=== PATIENT | female | born 1995 | race Caucasian/White ===

== ENCOUNTER 2020-06-03 09:18 | Emergency (ER) | payer OTHER, SELFPAY ==
[2020-06-03 09:44] VITALS: BP 110/61; PULSE 94; RESP 17; TEMP 36.3; O2SAT 99
--- NOTE | 2020-06-03 09:52 | ED.FEMALEGU ---
HPI - Female Genitourinary General Chief complaint: Urogenital-Female Stated complaint: possible uti Time Seen by Provider: 06/03/20 09:52 Source: patient Mode of arrival: ambulatory Limitations: no limitations History of Present Illness HPI Narrative: Joanna Laurent is a 24 yo female with no PMH who comes to the [facility] care for complaints of urinary tract symptoms as well as concerned about an STD over unprotected sex in the recent few months. He had a different partner 4 months ago and contracted chlamydia but was treated. She has not been to a primary care physician as her doctor has retired. She is here for both her potential UTI and for possible STD exposure Related Data Home Medications Medication Instructions Recorded Confirmed amitriptyline 50 mg PO HS 06/03/20 06/03/20 aripiprazole [Abilify] 20 mg PO DAILY 06/03/20 06/03/20 hydroxyzine pamoate [Vistaril] 50 mg PO BID 06/03/20 06/03/20 lamotrigine [Lamictal] 150 mg PO DAILY 06/03/20 06/03/20 levonorgestrel [Mirena] 1 device INTRAUTERINE ONCE 06/03/20 06/03/20 sumatriptan succinate [Imitrex 4 mg SUBCUT ONCE 06/03/20 06/03/20 STATdose Pen] venlafaxine [Effexor XR] 75 mg PO TID 06/03/20 06/03/20 Allergies Allergy/AdvReac Type Severity Reaction Status Date / Time codeine Allergy Hives Verified 06/03/20 09:59 Review of Systems Review of Systems: Narrative: CONSTITUTIONAL: Denies fever, chills, sweats. EYES: Denies visual changes, redness, discharge. ENT: Denies rhinorrhea, congestion, sore throat, otalgia. CARDIOVASCULAR: Denies chest pain, palpitations, edema. RESPIRATORY: Denies dyspnea, wheezing, cough GASTROINTESTINAL: Denies abdominal pain, nausea, vomiting, diarrhea. GENITOURINARY:has dysuria, hematuria, abnormal discharge- concerned about STD SKIN: Denies rash or itching. NEUROLOGIC: Denies numbness, or focal weakness. PSYCHIATRIC: Denies anxiety or depression. PMFSH Past Medical History Medical History Chlamydia Family History Family History Other Hypertension Social History Social History (Updated 06/03/20 @ 10:15 by Erum Cowan CNP) Smoking status: Current every day smoker Tobacco type: e-cigarettes/vaping Alcohol intake: current Gender identity (if verbalized by the patient): Female Comments At time of signature, I agree with nursing past medical, surgical, social and family history. There is no relevant family history pertinent to the presenting complaint. Exam Narrative: Exam Narrative: GENERAL: This is a well-nourished, well-developed patient, in no distress. HEAD: normocephalic, atraumatic. EYES: Sclera clear/white. Vision is grossly intact. EARS: External ears normal, Hearing grossly intact. NOSE: External nose normal without nasal discharge, nares without redness, no rhinorrhea. THROAT: Mucous membranes moist, NECK: Neck supple, non-tender CARDIOVASCULAR: Regular rate and rhythm without murmurs, gallops, or rubs. RESPIRATORY: Clear to auscultation. Breath sounds equal bilaterally. No wheezes, rales, or rhonchi. GASTROINTESTINAL: Abdomen soft, non-tender, SKIN: warm, intact with no suspicious lesions or rash, good texture and turgor. NEURO: awake, alert, and oriented to person, place and time. There were no obvious focal neurologic abnormalities. Steady gait EXTREMITIES: Normal range of motion. BACK: Nontender without deformity Course Vital Signs Vital signs: Vital Signs Temperature 97.4 F L 06/03/20 09:44 Pulse Rate 94 06/03/20 09:44 Respiratory Rate 17 06/03/20 09:44 Blood Pressure 110/61 06/03/20 09:44 Pulse Oximetry 99 06/03/20 09:44 Temperature 97.4 F L 06/03/20 09:44 Pulse Rate 94 06/03/20 09:44 Respiratory Rate 17 06/03/20 09:44 Blood Pressure 110/61 06/03/20 09:44 Pulse Oximetry 99 06/03/20 09:44 Procedures Other Procedure Procedure 1:
[2020-06-03] MEDS: AZITHROMYCIN 250 MG TABLET 1000 MG PO (10:28)
[2020-06-03] MEDS: LIDOCAINE HCL 1% LOCAL INJ 20 ML VIAL IM (10:29)
[2020-06-03] MEDS: cefTRIAXone 250 MG VIAL IM (10:29)
== END 2020-06-03 10:53 | disposition home or self-care (01) ==
PROVIDERS: Emergency Provider Nurse Practitioner
DX: Z20.2 Contact with and (suspected) exposure to infections with a predominantly sexual mode of transmission (principal); B37.3 Candidiasis of vulva and vagina; N30.01 Acute cystitis with hematuria; F17.200 Nicotine dependence, unspecified, uncomplicated
CPT/HCPCS: 81003; 87086; 87088; 87491; 87591; 87661; 96372; 99204; A9270; G0463; J0696